=== PATIENT | male | born 1970 | race Caucasian/White ===

== ENCOUNTER 2019-09-11 16:25 | Outpatient (CLI) | payer BC, SELFPAY | END 2019-09-11 16:26 | disposition home or self-care (01) | LOC: LAB 16:27 | PROVIDERS: Visit Provider Nurse Practitioner Family | DX: D48.5 Neoplasm of uncertain behavior of skin (principal) | CPT/HCPCS: 88305 ==

== ENCOUNTER → 2024-04-23 07:26 | Outpatient (BNVA) | payer BC, SELFPAY | PROVIDERS: Visit Provider Registered Nurse Neonatal Intensive Care | DX: N23 Unspecified renal colic (principal) | CPT/HCPCS: 81000; 87086 ==